=== PATIENT | male | born 1960 | race Caucasian/White ===

== ENCOUNTER → 2017-06-04 | Outpatient (CLI) | payer OTHER ==
[~2017-06-04] MED LIST: AMOX500T10 PO; CLAR-1 PO; PANT40TA65 PO
--- NOTE | 2017-06-04 15:00 | RADIOLOGY IMAGING REPORT ---
FACILITY: [facility] PATIENT NAME: Bernard Urias : 1960 MR: [id number] V: [id number] EXAM DATE: ORDERING PHYSICIAN: DALIA GREENWOOD TECHNOLOGIST: Location: [facility] - [place] Patient: Bernard Urias : 1960 Visit/Account:[id number] Date of Sevice: 06/04/2017 CERVICAL SPINE 2 OR 3 VIEW Indication: Neck pain Comparison: None. Findings: The vertebral bodies and posterior elements are intact. There is mild disc space narrowing with anterior osteophytes at C5-6. Facets are normal. IMPRESSION: Mild cervical spondylosis C5-6. Report Dictated By: Bernard Griffith at 06/04/2017 2:55 PM Report E-Signed By: Bernard Griffith at 06/04/2017 2:56 PM WSN:[id number]
== END ==
LOC: RAD 13:07
PROVIDERS: ATTEND Nurse Practitioner Family
DX: M47.892 Other spondylosis, cervical region (principal)
CPT/HCPCS: 72040

== ENCOUNTER → 2017-06-18 | Outpatient (CLI) | payer OTHER ==
--- NOTE | 2017-06-18 16:01 | RADIOLOGY IMAGING REPORT ---
FACILITY: [facility] - [place] PATIENT NAME: Bernadr Urias : 1960 MR: [id number] V: [id number] EXAM DATE: ORDERING PHYSICIAN: HAILY ALMANZA TECHNOLOGIST: Location: [facility] - [place] Patient: Bernard Urias : 1960 Visit/Account:[id number] Date of Sevice: 06/18/2017 EXAMINATION: C SPINE W/O CONTRAST INDICATION: Pain radiating to left shoulder COMPARISON: Radiographs June 04, 2017 TECHNIQUE: Multiplane MR imaging was performed through the cervical spine without contrast. FINDINGS: Vertebral body height: Normal Cord signal: Normal Marrow signal: Minimal degenerative edema surrounds the C6-7 disc space. Faint high signal within th e mid to right aspect of the C5 vertebral body, sagittal STIR image seven. Prevertebral and paraspinal soft tissues: Normal C2-3: Normal C3-4: Mild congenital narrowing of the canal. Left foramen not well characterized on axial images sec ondary to artifact. Potential moderate to severe left foraminal narrowing. C4-5: Mild congenital narrowing of the canal. Mild bilateral foraminal narrowing. C5-6: Mild disc space degeneration. Mild congenital narrowing of the canal. Moderate left and sever e right foraminal narrowing. C6-7: Left sided uncovertebral arthropathy. Small disc protrusion in the region of the uncovertebral arthropathy. Mild left-sided canal narrowing. Severe left foraminal narrowing. C7-T1: Slight anterolisthesis of C7 on T1. No disc protrusion or canal narrowing. Mild right and po tential moderate to severe left foraminal narrowing not well characterized on axial images. IMPRESSION: 1. Faint nonspecific marrow high signal within the mid to right C5 vertebral body which may be degen erative. A metastatic lesion is felt less likely but cannot be entirely excluded given patient age. Follow-up MR in 2-3 months should be considered to document stability. 2. Mild multilevel canal narrowing, see level by level comments above. 3. Mmultilevel foraminal narrowing, see level by level comments above. Report Dictated By: Kavin Atkins MD at 06/18/2017 3:49 PM Report E-Signed By: Kavin Atkins MD at 06/18/2017 3:57 PM [id number]
== END ==
LOC: MRI 06:57
PROVIDERS: ATTEND Neurological Surgery
DX: M50.222 Other cervical disc displacement at C5-C6 level (principal)
CPT/HCPCS: 72141

== ENCOUNTER → 2018-01-20 | Outpatient (CLI) | payer OTHER ==
--- NOTE | 2018-01-20 15:07 | RADIOLOGY IMAGING REPORT ---
FACILITY: [facility] PATIENT NAME: Bernard Urias : 1960 MR: [id number] V: [id number] EXAM DATE: ORDERING PHYSICIAN: DALIA GREENWOOD TECHNOLOGIST: Location: [facility] - [place] Patient: Bernard Urias : 1960 Visit/Account:[id number] Date of Sevice: 01/20/2018 Left lower extremity venous Doppler: HISTORY: Total left knee replacement 4 weeks prior. Left lower extremity edema, warmth and uncontain ed pain. COMPARISON: None FINDINGS: Grayscale and Doppler evaluation was performed of the left lower extremity deep venous syst em. Flow is documented in the common femoral, femoral, popliteal and trifurcation veins. Vessels are com pressible and flow can be augmented. Flow is documented in the posterior tibial and peroneal veins. Anterior tibial vein is patent No Kowalski's cyst is present in the popliteal fossa. IMPRESSION: 1. No left lower extremity DVT. 2. No Kowalski's cyst. . Report Dictated By: Savannah Valadez MD at 01/20/2018 3:01 PM Report E-Signed By: Savannah Valadez MD at 01/20/2018 3:03 PM WSN:[email or web address]
== END ==
LOC: US 13:54
PROVIDERS: ATTEND Nurse Practitioner Family
DX: R60.0 Localized edema (principal); Z47.1 Aftercare following joint replacement surgery

== ENCOUNTER → 2018-08-12 | Outpatient (CLI) | payer OTHER ==
[~2018-08-12] MED LIST changes: +IOPAMIDOL ONE; +NS(*) 0.9% 50 ML BAG 50 ML ONE
--- NOTE | 2018-08-12 11:09 | RADIOLOGY IMAGING REPORT ---
FACILITY: [facility] PATIENT NAME: Bernard Urias : 1960 MR: [id number] V: [id number] EXAM DATE: ORDERING PHYSICIAN: RUFINO WHITFIELD TECHNOLOGIST: Location: [facility] - [place] Patient: Bernard Urias : 1960 Visit/Account:[id number] Date of Sevice: 08/12/2018 CT ABDOMEN PELVIS W & W/O CONTRAST HISTORY: gross hematuria TECHNIQUE: Axial images acquired through the abdomen/pelvis both with and without IV contrast.. Hollie nal and sagittal reformatting also performed.Dose Lowering Technique One of the following dose optimization techniques was utilized in the performance of this exam: Autom ated exposure control; adjustment of the mA and/or kV according to the patient's size; or use of an i terative reconstruction technique. Specific details can be referenced in the facility's radiology C T exam operational policy. CONTRAST: 125 mL Isovue-370 COMPARISON: None. FINDINGS: Visualized lung bases: Negative. Hepatobiliary: Negative. Spleen: Negative. Adrenals: Negative. Pancreas: Negative. Kidneys ureters and bladder: There multiple nonobstructing calculi seen in both renal collecting syst ems; the largest bilaterally is approximately 3 mm there is no evidence of hydronephrosis or hydroure ter. There is a 1.5 cm cyst in the upper pole of the right kidney and a 2 cm cyst upper pole the lef t kidney. There are additional subcentimeter hypodensities in the kidneys that are too small to mikie acterize although may represent represent additional cysts. The bladder wall is moderately thickened and slightly trabeculated. The prostate gland is markedly e nlarged and impinges upon the floor the bladder. Posterior wall the bladder appears slightly irregul ar adjacent to the UVJs Genitalia: Prostate gland appears markedly enlarged impinging upon the floor the bladder right semin al vesicles are slightly prominent and heterogeneous GI: There is scattered diverticula throughout the colon although no CT evidence of acute diverticuli tis. Vessels/spaces/nodes: Negative. Bones/soft tissues: There spondylotic changes lumbar spine. There is a small periumbilical hernia c ontaining fat. There are small bilateral inguinal hernias containing fat Additional findings: None pertinent. IMPRESSION: There is nonobstructing nephrolithiasis bilaterally. The bladder wall is moderately thickened and slightly trabeculated. The prostate gland is markedly e nlarged impinging upon the floor the bladder. The posterior wall the bladder appears slightly irregu lar adjacent to the UVJs. Small. Focal hernia containing fat Small bilateral inguinal hernias containing fat Additional chronic findings as described Report Dictated By: Tiffany Jerome MD at 08/12/2018 10:51 AM Report E-Signed By: Tiffany Jerome MD at 08/12/2018 11:03 AM WSN:[email or web address]
== END ==
LOC: CT 00:50
PROVIDERS: ATTEND Urology
DX: N13.30 Unspecified hydronephrosis (principal)
CPT/HCPCS: 74178; J7050; Q9967

== ENCOUNTER 2018-09-08 01:35 | Observation (INO) | payer OTHER ==
[~2018-09-08] VITALS: Ht 175.3 cm; Wt 86.6 kg
[2018-09-08] VITALS (12 sets, daily range): BP systolic 112–154; BP diastolic 74–104
[~2018-09-08 01:35] MED LIST changes: +ACET-1966 PO; +CALC500T6 PO; +CIPR-214 PO; -IOPAMIDOL ONE; -NS(*) 0.9% 50 ML BAG 50 ML ONE
[2018-09-08] MEDS ORDERED: MIDAZOLAM 2 MG/2 ML VIAL IVP PRN (06:45)
[2018-09-08] MEDS ORDERED: NORMOSOL R SOLN(*) 1000 ML BAG 1,000 ML IV PRN (06:45)
[2018-09-08] MEDS ORDERED: LIDOCAINE/SOD BICARB 8.4% SYR ID ONE (06:45)
[2018-09-08] MEDS ORDERED: FAMOTIDINE 20 MG TAB PO ONE (06:45)
[2018-09-08] MEDS ORDERED: ONDANSETRON 4 MG/2 ML VIAL ONE (07:05)
[2018-09-08] MEDS ORDERED: METOCLOPRAMIDE 10 MG/2 ML SDV ONE (07:05)
[2018-09-08] MEDS ORDERED: PROPOFOL EMUL(*) 10MG/ML 20 ML 20 ML ONE (07:05)
[2018-09-08] MEDS ORDERED: LIDOCAINE MPF 1% 5 ML VIAL ONE (07:05)
[2018-09-08] MEDS ORDERED: DEXAMETHASONE SOD 4 MG/ML VIAL ONE (07:05)
[2018-09-08] MEDS ORDERED: fentaNYL CITR 100 MCG/2 ML AMP ONE (07:07)
[2018-09-08] MEDS ORDERED: LEVOFLOXACIN/D5W*500 MG/100 ML 100 ML IVPB ONE (08:00)
[2018-09-08] MEDS ORDERED: BELLADONNA ALK/OPIUM 60MG SUPP PR ONE (08:16)
[2018-09-08] MEDS ORDERED: APAP/HYDROCODONE 325/5 TAB PO PRN (09:00)
[2018-09-08] MEDS: DOCUSATE SODIUM 100 MG CAP PO SCH ×2 (09:00→21:31)
[2018-09-08] MEDS ORDERED: ONDANSETRON 4 MG/2 ML VIAL IVP PRN (09:00)
[2018-09-08] MEDS: FAMOTIDINE 20 MG TAB PO SCH ×2 (09:00→21:31)
[2018-09-08] MEDS ORDERED: NALOXONE HCL 0.4 MG/ML VIAL IVP PRN (09:00)
[2018-09-08] MEDS ORDERED: BELLADONNA ALK/OPIUM 60MG SUPP PR PRN (09:00)
[2018-09-08] MEDS ORDERED: HYDROmorphone HCL 2 MG/ML SDV IVP PRN (09:00)
--- NOTE | 2018-09-08 10:02 | OPERATIVE REPORT 1 ---
EVENT DATE: September 08, 2018 SURGEON: Reed Hirsch MD ANESTHESIOLOGIST: Ryan Reyna MD ANESTHESIA: General. PROJECT SPECIALIST: None. PREOPERATIVE DIAGNOSIS Bladder outlet obstruction. POSTOPERATIVE DIAGNOSIS Bladder outlet obstruction. PROCEDURE PERFORMED Bipolar Transurethral resection of the prostate. DESCRIPTION OF PROCEDURE The patient was brought to the operating room and after the adequate induction of general anesthesia, he was placed in the relaxed dorsal lithotomy position. The genitalia were scrubbed, prepped and draped in sterile fashion and the bladder examined with the resectoscope sheath and visual obturator. No mucosal abnormalities were noted within the bladder. Trilobar prostatic hypertrophy was again observed. I then positioned the resectoscope element and began resecting the prostate first circumferentially to excise the intravesical component and then turning attention to the left lobe of the prostate which was resected from the bladder neck distally to the verumontanum. A similar procedure was then undertaken on the right lobe. The tissue of the roof was resected from the bladder neck to the mid gland and then lastly the tissue in front of the verumontanum resected. Once all of the chips had been evacuated from the bladder, hemostasis was obtained with the button device of the bipolar instrument and any residual adenoma was ablated. Hemostasis was excellent and a 22-Mosotho 30 cc 3-way Ward catheter passed into the bladder and connected to continuous irrigation. The B and O suppository was administered. He was aroused from anesthesia and then transported to the PACU in stable condition. ANANTH
[2018-09-08] MEDS: oxyCODON/ACET (*)5/325MG (CII) 1 TAB TAB PO PRN ×3 (11:47→21:31)
[2018-09-08] MEDS ORDERED: NS 0.9% 3000 ML IRRIGATION BAG 3,000 ML in NS 0.9% 3000 ML IRRIGATION BAG 3,000 ML IR PRN (14:35)
[2018-09-08] MEDS: NS 0.9% 3000 ML IRRIGATION BAG 3,000 ML IR PRN ×2 (15:09→15:12)
[2018-09-08] MEDS: NS 0.45%(*) 1000 ML BAG 1,000 ML IV PRN (18:11)
[2018-09-09 00:24] VITALS: BP 127/77
[2018-09-09] MEDS: oxyCODON/ACET (*)5/325MG (CII) 1 TAB TAB PO PRN ×2 (01:39→05:56)
[2018-09-09] MEDS: NS 0.45%(*) 1000 ML BAG 1,000 ML IV PRN (01:52)
[2018-09-09 04:00] VITALS: BP 125/78
[2018-09-09 06:07] LABS: PLATELET COUNT, AUTOMATED 217 K/uL (150-450)
[2018-09-09 07:01] VITALS: BP 143/87
[2018-09-09 08:27] VITALS: Ht 175.3 cm; Wt 86.6 kg
[2018-09-09] MEDS: DOCUSATE SODIUM 100 MG CAP PO SCH (08:38)
[2018-09-09] MEDS: FAMOTIDINE 20 MG TAB PO SCH (08:38)
--- NOTE | 2018-09-09 10:08 | Urology Progress Note ---
Subjective Patient Complains of: Neurological: No: Syncope, Confusion, Weakness, Dizziness, Slurred Speech, Other Genitourinary: Hematuria, Other (sense of incomplete emptying) Physical Exam Vital Signs Date Time Temp Pulse Resp B/P (MAP) Pulse Ox O2 Delivery O2 Flow Rate FiO2 09/09/18 07:47 92 Room Air 09/09/18 07:01 99.0 59 16 143/87 (105) 09/09/18 00:24 1.0 Intake and Output 09/09/18 07:03 Intake Total 60369 ml Output Total 94908 ml Balance -4220 ml Intake Oral 1180 ml IV Total 1550 ml Other 51634 ml Output Urine Total 4150 ml Estimated Blood Loss 0 ml Other 41964 ml General Appearance: Alert, Other (he has urgency and a sense of incomplete emptying) Neuro: No Gross deficits Eyes: PERRLA GI: Soft and Non-Tender : No CVA Tenderness, Other (bladder is palpable at symphysis pubis) Extremities: Soft and Non Tender Result Diagram: 09/09/1852609/09/18526 Assessment and Plan Condition The Ward catheter was removed this morning and he was able to void 150 cc but is having progressive difficulty initiating his stream and is now developing a sense of incomplete emptying. Bladder scan demonstrates a volume of greater than 350 mL. At the bedside, I reinserted a 22 Frisian coud-tip catheter and emptied his bladder My plan is to discharge him home and have him follow-up on Wednesday for a voiding trial. Time Spent: > 30 min Exam Sepsis Risk: No Definite Risk RUFINO WHITFIELD MD Sep 09, 2018 10:08
--- NOTE | 2018-09-09 10:12 | Urology Discharge Summary ---
Discharge Summary Reason for Hosp/Final Diag: (1) BPH loc w urin obs/LUTS Status: Acute Departure Weight (Pounds): 191 Result Diagram: 09/09/1852609/09/18526 Condition: Improved Discharge: Home Time Spent: > 30 min Discharge Instructions Home Meds Reported Medications Acetaminophen (TYLENOL) 325 Mg Tablet, 325 MG PO PRN PRN for PAIN, TAB 09/05/18 Discontinued Reported Medications Calcium Carbonate (CALCIUM) 500 Mg Tablet, 500 MG PO QDAY 09/05/18 Clarithromycin (CLARITHROMYCIN) 500 Mg Tablet, 500 MG PO BID, #28 11/09/12 Amoxicillin 500 Mg Tab (AMOXICILLIN 500 MG TAB) 500 Mg Tablet, 2 TAB PO BID, #56 TAKE TWO TABLETS BY MOUTH EVERY 12 HOURS 11/09/12 Pantoprazole Sodium (PANTOPRAZOLE SODIUM) 40 Mg Tablet.dr, 40 MG PO BID, #28 TAB.SR 11/09/12 Diet: Regular Activity: No Heavy Lifting, No Exertion, No Driving Special Instructions: Come to the office Wednesday for a voiding trial (removal of catheter) Call me for any problems or concerns: cell phone [phone], home phone [phone] Venous Thromboembolism Antithrombotics Is Pt On Any Antithrombotics?: No Prophylaxis Tx Contraindicated Pharmacological Contraindicati: Surgical Contraindication RUFINO WHITFIELD MD Sep 09, 2018 10:12
[2018-09-12] MEDS ORDERED: SULF-198 PO (13:38)
== END 2018-09-09 10:13 | disposition home or self-care (01) ==
LOC: OR 01:35 → MED 10:07
PROVIDERS: ADMIT Urology; ATTEND Urology
DX: Q64.39 Other atresia and stenosis of urethra and bladder neck (principal)
CPT/HCPCS: 36415; 52648; 85025; 88305; A4338; G0378; J1100; J1956; J2001; J2250; J2405; J2704; J2765; J3010; 82310; 82374; 82435; 82565; 82947; 84132; 84295; 84520